=== PATIENT | male | born 1975 | race Caucasian/White ===

== ENCOUNTER 2023-04-03 00:14 | Emergency (ER) | payer OTHER ==
[~2023-04-03] VITALS: Ht 170.2 cm; Wt 72.6 kg
[2023-04-03 00:19] VITALS: BP_SYST 130; PULSE 90; RESP 16; TEMP 97.5; O2SAT 99
[2023-04-03] MEDS ORDERED: LIDOCAINE/EPI 1% 1:100000 20 ML VIAL INJ ONE (01:45)
[2023-04-03] MEDS ORDERED: KETOROLAC TROMETHAMINE 60 MG/2 ML VIAL IM ONE (01:45)
[2023-04-03] MEDS ORDERED: NAPR-1172 PO (02:57)
[2023-04-03 03:35] VITALS: BP_SYST 130; PULSE 90; RESP 16; TEMP 97.5; O2SAT 99
== END 2023-04-03 03:35 | disposition home or self-care (01) ==
LOC: SED 00:14
DX: S01.112A Laceration without foreign body of left eyelid and periocular area, initial encounter (principal); Z79.899 Other long term (current) drug therapy; V18.0XXA Pedal cycle driver injured in noncollision transport accident in nontraffic accident, initial encounter; Y93.89 Activity, other specified; Y92.89 Other specified places as the place of occurrence of the external cause; Y99.8 Other external cause status
CPT/HCPCS: 99285; 70450; 76376; 12013; 96372; J1885